=== PATIENT | female | born 1995 | race Caucasian/White ===

== ENCOUNTER 2017-10-09 16:58 | Emergency (ER) | payer OTHER ==
[2017-10-09 17:19] VITALS: TEMP 97.6
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
[2017-10-09] MEDS ORDERED: HYDROcodone 7.5MG/APAP 325MG 1 EA TAB PO ONE (18:54)
[2017-10-09] MEDS ORDERED: predniSONE 20 MG TAB PO ONE (18:54)
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
[2017-10-09 19:07] VITALS: BP 121/84; O2SAT 100
== END 2017-10-09 19:10 | disposition home or self-care (01) ==
LOC: ER 16:58
DX: T14.8XXA Other injury of unspecified body region, initial encounter (principal); V43.52XA Car driver injured in collision with other type car in traffic accident, initial encounter; Y92.410 Unspecified street and highway as the place of occurrence of the external cause
CPT/HCPCS: 36416; 71045; 72020; 72040; 81001; 81025; 82948; J7512

== ENCOUNTER 2018-05-31 21:55 | Emergency (ER) | payer BC, OTHER ==
[2018-05-31] MEDS ORDERED: diphenhydrAMINE HCL 50 MG/ML VIAL IV PRN (22:05)
[2018-05-31] MEDS ORDERED: methylPREDNISolone SODIUM SUC 125 MG/2 ML VIAL IV ONE (22:05)
[2018-05-31] MEDS ORDERED: IPRATROPIUM/ALBUTEROL 3 ML VIAL NEB ONE (22:07)
[2018-05-31] MEDS ORDERED: diphenhydrAMINE HCL 50 MG/ML VIAL ONE (22:08)
--- NOTE | 2018-05-31 22:11 | ED.PDOC ---
History of Present Illness - General Chief Complaint: Allergic Reaction Stated Complaint: shortness of breath, itchy eyes, cough Time Seen by Provider: 05/31/18 22:01 Source: patient Exam Limitations: no limitations - History of Present Illness Initial Comments: Pt was at the [facility] when she started having sorethroat, itchy eyes and wheezes. Pt denies rash or itching. No allergic reactions in past Timing/Duration: 1-3 hours Severity: moderate Activities at Onset: none Possible Cause: no prior episodes, unknown cause Improving Factors: nothing Worsening Factors: nothing Associated Symptoms: anxiety, wheezing Respiratory Risk Factors: no cause identified Allergies/Adverse Reactions: Allergies NO KNOWN ALLERGY Allergy (Verified 10/09/17 17:50) Home Medications: Ambulatory Orders Cyclobenzaprine HCl [Flexeril] 5 mg PO TID PRN #30 tab 10/09/17 predniSONE [Prednisone] 20 mg PO DAILY #3 tab 10/09/17 Prednisone [Deltasone] 20 mg PO BID #10 tab 05/31/18 Review of Systems - Review of Systems Constitutional: States: no symptoms reported EENTM: States: blurred vision, nose congestion, throat pain, throat swelling Respiratory: States: short of breath, wheezing Cardiology: Denies: chest pain, syncope Gastrointestinal/Abdominal: Denies: abdominal pain, nausea Genitourinary: States: no symptoms reported Musculoskeletal: States: no symptoms reported Skin: Denies: change in color, rash Neurological: States: no symptoms reported Endocrine: States: no symptoms reported Hematologic/Lymphatic: States: no symptoms reported Past Medical History (General) - Patient Medical History Hx Seizures: No Hx Stroke: No Hx Dementia: No Hx Asthma: No Hx of COPD: No Hx Cardiac Disorders: No Hx Congestive Heart Failure: No Hx Pacemaker: No Hx Hypertension: No Hx Thyroid Disease: No Hx Diabetes: No Hx Gastroesophageal Reflux: No Hx Renal Disease: No Hx Cancer: No Hx of HIV: No Hx Hepatitis C: No Hx MRSA: No Surgical History: no surgical history - Vaccination History Hx Tetanus, Diphtheria Vaccination: No Hx Influenza Vaccination: No Hx Pneumococcal Vaccination: No - Social History Hx Tobacco Use: No Hx Chewing Tobacco Use: No Hx Alcohol Use: Yes - social Hx Substance Use: No Hx Substance Use Treatment: No Hx Depression: No Hx Physical Abuse: No Hx Emotional Abuse: No Hx Suspected Abuse: No - Female History Patient : No - Triage Comment ED Triage Comment: Pt [place] this [place] and pt eyes started itching, the she started coughing. Now she reports she feels like her throat is closing and feels tightness in her chest. Pt stated, "feel short of breath." Pt is hyperventilating. She believes she allergic to something. VS stable, O2 sat at 100% RA. Family Medical History - Family History Mother Family History: Unknown Physical Exam - Physical Exam General Appearance: Alert, Anxious, Restless Eyes, Ears, Nose, Throat Exam: PERRL/EOMI, pharynx normal, other - conjunctivae injected bilat, 1+ Neck: non-tender, full range of motion Respiratory: no respiratory distress, wheezing Cardiovascular/Chest: regular rate, rhythm, no edema Departure - Departure Clinical Impression: Allergic reaction Qualifiers: Encounter type: initial encounter Qualified Code(s): T78.40XA - Allergy, unspecified, initial encounter Disposition: Discharge to Home or Self Care Condition: Fair Departure Forms: ED Discharge - Pt. Copy, Patient Portal Self Enrollment Instructions: DI for Allergic Rhinitis Referrals: Ed Pérez MD [Primary Care Provider] - 1-2 Weeks Prescriptions: Prednisone [Deltasone] 20 mg PO BID #10 tab Home Medications: Ambulatory Orders Cyclobenzaprine HCl [Flexeril] 5 mg PO TID PRN #30 tab 10/09/17 predniSONE [Prednisone] 20 mg PO DAILY #3 tab 10/09/17 Prednisone [Deltasone] 20 mg PO BID #10 tab 05/31/18
[2018-05-31] MEDS ORDERED: diphenhydrAMINE HCL 50 MG/ML VIAL IV ONE (22:17)
[2018-05-31 22:37] VITALS: O2SAT 99
[2018-05-31] MEDS ORDERED: EPINEPHrine HCL AMP 1 MG/ML AMP SUBCU ONE (22:47)
[2018-05-31 23:45] VITALS: BP 129/79; TEMP 97.9
== END 2018-05-31 23:45 | disposition home or self-care (01) ==
LOC: ER 21:55
DX: T78.40XA Allergy, unspecified, initial encounter (principal); R06.4 Hyperventilation; J02.9 Acute pharyngitis, unspecified; R05 Cough
CPT/HCPCS: 80053; 85025; 94640; J1200; J2930; J7620